=== PATIENT | male | born 1965 | race Caucasian/White ===

== ENCOUNTER 2020-09-05 18:09 | Emergency (ER) | payer SELFPAY ==
[~2020-09-05] VITALS: Ht 185.4 cm; Wt 97.7 kg
[2020-09-05 18:23] VITALS: BP 136/89
--- NOTE | 2020-09-05 18:59 | NUR ---
PT A&OX4 AND AMBULATORY. F/U AND D/C INSTRUCTIONS GIVEN TO PT AND HE V/U. PRESCRIPTIONS GIVEN TOO, AND PT AMBULATED OUT.
== END 2020-09-05 19:01 | disposition home or self-care (01) ==
LOC: ED 18:45
DX: L03.114 Cellulitis of left upper limb (principal); L03.113 Cellulitis of right upper limb; L89.899 Pressure ulcer of other site, unspecified stage
CPT/HCPCS: 99283